=== PATIENT | female | born 1985 | race Caucasian/White ===

== ENCOUNTER 2023-01-17 21:05 | Emergency (ER) | payer OTHER ==
[~2023-01-17] VITALS: Ht 167.6 cm; Wt 127.0 kg
[2023-01-17 21:17] VITALS: BP 164/80; PULSE 100; RESP 18; TEMP 97.1; O2SAT 100
[2023-01-17 22:13] LABS: HEMATOCRIT. 35.3 % (36.0-48.0); HEMOGLOBIN. 11.3 g/dL (12.0-16.0); MEAN CORPUSCULAR HEMOGLOBIN 27.8 pg (28.0-32.0); MEAN CORPUSCULAR HGB CONC 32.2 g/dL (31.0-37.0); MEAN CORPUSCULAR VOLUME 86.5 fL (81.0-99.0); MEAN PLATELET VOLUME 8.4 fl (7.4-10.4); PLATELET 156 x1000/uL (130-400); RED BLOOD CELL COUNT 4.08 mill/uL (4.2-5.4); RED CELL DISTRIBUTION WIDTH 21.1 % (11.6-14.6); WHITE BLOOD COUNT 15.5 x1000/uL (4.5-11.0)
[2023-01-17 22:16] LABS: DIFFERENTIAL COMMENT 1
[2023-01-17 22:22] LABS: CHLORIDE 107 mEq/L (98-107); INDEX HEMOLYSI 1 (1-3); INDEX ICTERIC 1 (1-4); INDEX LIPEMIC 1 (1-3); POTASSIUM 4.1 mEq/L (3.5-5.1); SODIUM 135 mEq/L (136-145)
[2023-01-17 22:24] LABS: HCG SCREEN NEGATIVE
[2023-01-17 22:30] LABS: ALANINE AMINOTRANSFERASE 16 IU/L (13-61); ALBUMIN 3.7 g/dL (3.4-5.0); ASPARTATE AMINOTRANSFERASE 20 IU/L (15-37); BILIRUBIN TOTAL 0.5 mg/dL (0.1-1.0); CALCIUM 8.8 mg/dL (8.5-10.1); CARBON DIOXIDE 19 mEq/L (21-32); GLUCOSE 121 mg/dL (70-105)
[2023-01-17 22:34] LABS: UREA NITROGEN BLOOD 81 mg/dL (7-21)
[2023-01-17 22:35] LABS: CREATININE 8.4 mg/dL (0.6-1.3)
[2023-01-17 22:54] LABS: ANISOCYTOSIS 1+; PLATELET ESTIMATE NORMAL
[2023-01-18] MEDS ORDERED: ONDANSETRON HCL 4MG/2ML INJ IV STA (00:55)
[2023-01-18] MEDS ORDERED: SODIUM CHLORIDE 0.9% 500 ML IV ONE (01:00)
[2023-01-18] MEDS ORDERED: ONDA4TAB50 MT (01:01)
== END 2023-01-18 03:40 | disposition home or self-care (01) ==
LOC: ER 21:05
DX: R10.9 Unspecified abdominal pain (principal); I10 Essential (primary) hypertension; Z91.014 Allergy to mammalian meats; Z86.39 Personal history of other endocrine, nutritional and metabolic disease
CPT/HCPCS: 99291; 74176; 96374; 96361; 80053; 84703; 85025; 36415; J2405; J7040